=== PATIENT | male | born 1980 | race Hispanic/Latino ===

== ENCOUNTER 2019-07-15 21:40 | Emergency (ER) | payer SELFPAY ==
[2019-07-15] MEDS ORDERED: TETRACAINE HCL 0.5% 4 ML OPHTH SOLN ONE (22:06)
[2019-07-15] MEDS ORDERED: NA BORATE/BORIC AC/H2O/NACL 120 ML OPHTH IRRIG SOLN ONE (23:09)
[2019-07-15] MEDS ORDERED: ACETAMINOPHEN-CODEINE 300/30MG TAB ONE (23:23)
[2019-07-15] MEDS ORDERED: ERYTHROMYCIN BASE 0.5% OPHTH OINT 1 GM TUBE ONE (23:23)
[2019-07-15] MEDS ORDERED: IBUPROFEN 600 MG TABLET ONE (23:25)
== END 2019-07-15 23:57 ==
LOC: EDH 21:40
DX: S05.02XA Injury of conjunctiva and corneal abrasion without foreign body, left eye, initial encounter (principal); X58.XXXA Exposure to other specified factors, initial encounter; Y93.89 Activity, other specified; Y92.89 Other specified places as the place of occurrence of the external cause; Y99.8 Other external cause status; Z72.0 Tobacco use

== ENCOUNTER 2021-02-10 21:25 | Emergency (ER) | payer OTHER ==
[~2021-02-10] VITALS: Ht 165.1 cm; Wt 79.4 kg
[2021-02-10 21:28] VITALS: BP 138/98
[2021-02-10] MEDS ORDERED: CEPHALEXIN 500 MG CAPSULE PO ONE (22:00)
[2021-02-10] MEDS ORDERED: FLUCONAZOLE 100 MG TAB PO ONE (22:00)
[2021-02-10] MEDS ORDERED: CEPH500B PO (22:01)
[2021-02-10] MEDS ORDERED: FLUC150T PO (22:01)
[2021-02-10] MEDS ORDERED: CLOT15CR23 TP (22:01)
== END 2021-02-10 22:25 | disposition home or self-care (01) ==
LOC: EDH 21:25
DX: B35.3 Tinea pedis (principal); B95.8 Unspecified staphylococcus as the cause of diseases classified elsewhere; Z79.899 Other long term (current) drug therapy

== ENCOUNTER 2022-12-30 23:32 | Emergency (ER) | payer OTHER ==
[~2022-12-30 23:32] MED LIST: CEPH500B PO; CLOT15CR23 TP; FLUC150T PO
[2022-12-30 23:38] VITALS: BP 133/82; PULSE 77; RESP 20; O2SAT 99
[2022-12-31] MEDS ORDERED: LACTATED RINGERS 1000ML 1,000 ML IV ONE (00:30)
[2022-12-31] MEDS ORDERED: FAMOTIDINE 20MG VIAL IV ONE (00:30)
[2022-12-31] MEDS ORDERED: MORPHINE 4 MG SYG IVP ONE (00:30)
[2022-12-31] MEDS ORDERED: METOCLOPRAMIDE 10 MG/2 ML VIAL IVP ONE (00:30)
== END 2022-12-31 00:31 | disposition left against medical advice (07) ==
LOC: EDH 23:32
DX: R10.819 Abdominal tenderness, unspecified site (principal); Z53.21 Procedure and treatment not carried out due to patient leaving prior to being seen by health care provider
CPT/HCPCS: 99281; J3490; J2270; J2765; J7120